=== PATIENT | female | born 1995 | race African-American/Black ===

== ENCOUNTER 2021-07-23 18:30 | Emergency (ER) | payer MEDICAID, OTHER ==
[~2021-07-23] VITALS: Ht 170.2 cm; Wt 79.4 kg
[2021-07-23 22:22] LABS: BUN/Creatinine Ratio 12.9; Calcium 8.8 mg/dL (8.5-10.1); Potassium 3.7 mmol/L (3.5-5.1)
[2021-07-24] MEDS ORDERED: SPACMIS XX (03:23)
[2021-07-24] MEDS ORDERED: ALBU108A5 IN (03:23)
[2021-07-24 03:48] VITALS: BP 120/86
== END 2021-07-24 03:53 | disposition home or self-care (01) ==
LOC: ER 18:30
DX: R07.89 Other chest pain (principal)
CPT/HCPCS: 36415; 71046; 80048; 84484; 93005